=== PATIENT | female | born 1970 | race Caucasian/White ===

== ENCOUNTER 2016-06-22 22:02 | Emergency (ER) | payer OTHER ==
[2016-06-22 22:07] VITALS: BP 144/88; PULSE 81; TEMP 98.6; BMI 22.1
[2016-06-22] MEDS ORDERED: FLUORESCEIN NA 1 EA STRIP ONE ×2 (22:15→22:16)
--- NOTE | 2016-06-22 22:16 | PDOC ---
History of Present Illness - General Chief Complaint: Eye Problem Stated Complaint: EYE PROBLEM Time Seen by Provider: 06/22/16 22:13 History Source: Patient Exam Limitations: No Limitations - History of Present Illness Initial Comments: 06/22/16 22:16 45 yr female with pain to right eye started at 630pm. Pt denies injury was at home in her house and felt pain. no tearing or discharge no vision changes or photophobia no headache or dizzyness. Past History - Past Medical History Allergies/Adverse Reactions: Allergies Allergy/AdvReac Type Severity Reaction Status Date / Time No Known Allergies Allergy Verified 06/22/16 22:07 Home Medications: Ambulatory Orders NK [No Known Home Medication] 06/22/16 Suicide Attempt (Hx): No Other medical history: denies - Reproductive History Tubal Ligation: Yes - Psycho/Social/Smoking Cessation Hx Anxiety: No Suicidal Ideation: No Smoking History: Never smoked Have you smoked in the past 12 months: No Hx Alcohol Use: No Drug/Substance Use Hx: No Substance Use Type: None Hx Substance Use Treatment: No *Physical Exam - Vital Signs Last Vital Signs Temp Pulse Resp BP Pulse Ox 98.6 F 81 18 144/88 98 06/22/16 22:04 06/22/16 22:04 06/22/16 22:04 06/22/16 22:04 06/22/16 22:04 - Physical Exam General Appearance: Yes: Nourished HEENT: positive: EOMI, JAMES, Normal ENT Inspection, TMs Normal, Pharynx Normal, Other (right upper eyleid with swelling, mild conjunctival redness ) Neck: positive: Supple. negative: Tender Respiratory/Chest: positive: Lungs Clear, Normal Breath Sounds Musculoskeletal: positive: Normal Inspection Extremity: positive: Normal Capillary Refill, Normal Inspection, Normal Range of Motion Integumentary: positive: Normal Color, Dry, Warm Neurologic: positive: Fully Oriented, Alert, Normal Mood/Affect, Normal Response , Motor Strength 5/5 Procedures - Eye Procedure Alcaine Drops Administered: Yes Antibiotic Oinment/Drps Admin: right eye (tobramycin, neg fluoroscein uptake , pos conjunctival injection) *DC/Admit/Observation/Transfer Diagnosis at time of Disposition: Conjunctivitis Qualifiers: Conjunctivitis type: acute Acute conjunctivitis type: unspecified Laterality: right Qualified Code(s): H10.31 - Unspecified acute conjunctivitis, right eye - Discharge Dispostion Disposition: HOME Condition at time of disposition: Good - Referrals Referrals: Donny Wan [Primary Care Provider] - - Patient Instructions Additional Instructions: apply one drop every 4hrs while awake to right eye for 5 days follow with your eye doctor on Friday take motrin as needed for pain apply a cool compress ti the right eye every 2hrs for 15 minutes return to ER if any worsening symptoms
[2016-06-22] MEDS ORDERED: TOBRAMYCIN 0.3% OPHTH SOLN 5 ML BOTTLE OD ONE (22:19)
[2016-06-22] MEDS ORDERED: TOBRAMYCIN 0.3% OPHTH SOLN 5 ML BOTTLE ONE (22:19)
== END 2016-06-22 22:26 | disposition home or self-care (01) ==
LOC: JERFT 22:02
DX: H10.31 Unspecified acute conjunctivitis, right eye (principal)
CPT/HCPCS: 99281-25

== ENCOUNTER 2016-06-27 14:28 | Emergency (ER) | payer OTHER ==
--- NOTE | 2016-06-27 14:30 | PDOC ---
Rapid Medical Evaluation Time Seen by Provider: 06/27/16 14:29 Medical Evaluation: Allergies Allergy/AdvReac Type Severity Reaction Status Date / Time No Known Allergies Allergy Verified 06/22/16 22:07 06/27/16 14:30 Otherwise healthy 45 year old female who presents for evaluation of right eye redness, pain, and crusting discharge since Friday. V/s all within normal limits. -To FT for further evaluation.
[2016-06-27 14:33] VITALS: BP 149/81; PULSE 71; TEMP 98.3; BMI 22.8
--- NOTE | 2016-06-27 14:58 | PDOC ---
History of Present Illness - General Chief Complaint: Eye Problem Stated Complaint: EYE PROBLEM Time Seen by Provider: 06/27/16 14:29 History Source: Patient - History of Present Illness Timing/Duration: other Severity: mild Associated Symptoms: denies: fever/chills Past History - Past Medical History Allergies/Adverse Reactions: Allergies Allergy/AdvReac Type Severity Reaction Status Date / Time No Known Allergies Allergy Verified 06/27/16 14:31 Home Medications: Ambulatory Orders Diphenhydramine HCl [Benadryl -] 25 mg PO Q6H #28 capsule 06/27/16 Suicide Attempt (Hx): No Other medical history: denies - Reproductive History Tubal Ligation: Yes - Immunization History Immunization Up to Date: Yes - Psycho/Social/Smoking Cessation Hx Anxiety: No Suicidal Ideation: No Smoking History: Never smoked Have you smoked in the past 12 months: No Hx Alcohol Use: No Drug/Substance Use Hx: No Substance Use Type: None Hx Substance Use Treatment: No Review of Systems - Review of Systems Constitutional: No: Chills, Fever HEENTM: No: Eye Pain, Blurred Vision, Ear Pain, Nose Congestion, Throat Pain Respiratory: No: Cough *Physical Exam - Vital Signs Last Vital Signs Temp Pulse Resp BP Pulse Ox 98.3 F 71 20 149/81 100 06/27/16 14:31 06/27/16 14:31 06/27/16 14:31 06/27/16 14:31 06/27/16 14:31 - Physical Exam General Appearance: Yes: Appropriately Dressed. No: Apparent Distress HEENT: positive: Normal ENT Inspection, Normal Voice, TMs Normal, Pharynx Normal , Other (minimal edema to R lid, no ertyhema or sig ttp, no conjunc erythema or lid lesion, no chemosis). negative: Scleral Icterus (R), Scleral Icterus (L) Neck: positive: Supple. negative: Decreased range of motion, Lymphadenopathy (R ) Respiratory/Chest: negative: Respiratory Distress Integumentary: positive: Dry, Warm Neurologic: positive: Fully Oriented, Alert, Normal Mood/Affect Medical Decision Making - Medical Decision Making 06/27/16 14:59 45-year-old female, denies any past medical history, here with right eyelid itching and swelling. Patient was seen in ED for similar symptoms approximately one week ago. Was also complaining of conjunctival erythema then. Was diagnosed with conjunctivitis and started on tobramycin eyedrops which patient states she has completed. Returns today because itching and swelling persist. Denies any eye pain, discharge, tearing, photophobia, foreign body sensation or visual changes. No URI symptoms, fever or chills. Patient well-appearing and stable with minimal edema to right eyelid suggestive of an allergic component. No ttp or erythema to periorbital area to suggest cellulitis at this time. No conjunctival erythema and no lid lesions. Will discharge with instructions for cold compresses and Benadryl as needed. Reasons to return to discuss with patient 06/27/16 15:04 *DC/Admit/Observation/Transfer Diagnosis at time of Disposition: Allergic conjunctivitis of right eye - Discharge Dispostion Disposition: HOME Condition at time of disposition: Good - Prescriptions Prescriptions: Diphenhydramine HCl [Benadryl -] 25 mg PO Q6H #28 capsule - Patient Instructions Additional Instructions: Aplique compresas frescas cada 2 horas [place] 20 minutos cada vez hasta que el hinchamiento desaparezca. [place] se puede hacer w / trapo de lavado fresco. Aseg rese de que si est usando jie bolsa de hielo, coloque jie toalla entre el jared y el hielo para prevenir la congelacin. [place] benadryl Q6H segn sea necesario para picar / hincharse
== END 2016-06-27 15:00 | disposition home or self-care (01) ==
LOC: JERFT 14:28
DX: H10.11 Acute atopic conjunctivitis, right eye (principal)
CPT/HCPCS: 99281-25

== ENCOUNTER → 2022-07-04 | Day surgery (SDC) | payer OTHER | END | disposition home or self-care (01) | LOC: FMAMMOTONE 10:06 | PROVIDERS: ATTEND Physician Assistant | PROC: 0HBU3ZX Excision of Left Breast, Percutaneous Approach, Diagnostic (ICD-10-PCS; principal; 2022-07-04) | DX: D05.02 Lobular carcinoma in situ of left breast (principal); N60.82 Other benign mammary dysplasias of left breast; N60.92 Unspecified benign mammary dysplasia of left breast; N64.89 Other specified disorders of breast; R92.0 Mammographic microcalcification found on diagnostic imaging of breast | CPT/HCPCS: 19081; 76098-TC-FY; 87899; 88305-TC; 88341-TC; 88342-TC; A4648 ==